=== PATIENT | male | born 1995 | race Caucasian/White ===

== ENCOUNTER 2018-06-24 14:48 | Emergency (ER) | payer SELFPAY ==
[~2018-06-24] VITALS: Ht 188 cm; Wt 100.0 kg
[2018-06-24] MEDS ORDERED: HYDROCODONE/ACETAMINOPHEN 5-325 MG TABLET PO ONE (15:15)
[2018-06-24] MEDS ORDERED: KETOROLAC TROMETHAMINE 60 MG/2 ML VIAL IM ONE (15:15)
[2018-06-24] MEDS ORDERED: METHOCARBAMOL 500 MG TABLET PO ONE (16:00)
[2018-06-24 16:48] VITALS: BP 137/77
== END 2018-06-24 17:03 | disposition home or self-care (01) ==
LOC: EMS 14:49
DX: S43.102A Unspecified dislocation of left acromioclavicular joint, initial encounter (principal); V86.56XA Driver of dirt bike or motor/cross bike injured in nontraffic accident, initial encounter; Y93.89 Activity, other specified; Y92.89 Other specified places as the place of occurrence of the external cause; Y99.8 Other external cause status
CPT/HCPCS: 73030; 96372; 99284; J1885